=== PATIENT | female | born 1955 | race Two or more races ===

== ENCOUNTER 2020-12-21 11:29 | Emergency (ER) | payer SELFPAY ==
[~2020-12-21] VITALS: Ht 160 cm; Wt 105.0 kg
[2020-12-21 11:50] VITALS: BP 193/96
[2020-12-21] MEDS ORDERED: ACETAMINOPHEN 325MG TABLET PO ONE (13:15)
[2020-12-21] MEDS ORDERED: BACITRACIN ZINC OINT UDPKT TOP ONE (13:15)
[2020-12-21] MEDS ORDERED: LIDOCAINE HCL/PF 1% 10 MG/ML 5ML VIAL INFIL ONE (13:15)
[2020-12-21] MEDS ORDERED: ACET-2708 PO (15:07)
== END 2020-12-21 15:18 | disposition home or self-care (01) ==
LOC: ER 11:41
DX: S61.412A Laceration without foreign body of left hand, initial encounter (principal); E11.9 Type 2 diabetes mellitus without complications; I10 Essential (primary) hypertension; W26.8XXA Contact with other sharp object(s), not elsewhere classified, initial encounter; Y93.89 Activity, other specified; Y92.89 Other specified places as the place of occurrence of the external cause; Y99.8 Other external cause status
CPT/HCPCS: 12002; 99283; A4217; J3490; Z7610